=== PATIENT | female | born 1970 | race Caucasian/White ===

== ENCOUNTER 2016-06-03 13:41 | Emergency (ER) | payer OTHER ==
[~2016-06-03 13:41] MED LIST: PRILOSEC OTC20 MG PO; TRAMADOL HCL50 MG PO; TYLENOL EXTRA500 MG PO; ZYRTEC-D TABLE1 EACH PO
[2016-06-03] MEDS ORDERED: CELEBREX200 M1 PO (14:28)
[2016-06-03] MEDS ORDERED: OMEPRAZOLE40 M2 PO (14:29)
[2016-06-03] MEDS ORDERED: CELEXA40 M2 PO (14:29)
[2016-06-03] MEDS ORDERED: COLESTID1 GM PO (14:29)
[2016-06-03] MEDS ORDERED: ZOFRAN4 M2 PO (14:30)
[2016-06-03] MEDS ORDERED: PRENATAL-U CAPS1 CAP PO (14:35)
[2016-06-03] MEDS ORDERED: VITAMIN B122500 MCG PO (14:35)
[2016-06-03] MEDS ORDERED: ZYRTEC10 M7 PO (14:35)
[2016-06-03 15:36] LABS: BASO % 0.1 % (0-2); EOS % 1.2 % (0-7); EOSINOPHIL ABSOLUTE COUNT 0.1 tho/cmm (0.0-0.7); HCT-HEMATOCRIT 36.3 % (34.0-49.0); HGB-HEMOGLOBIN 11.8 gm/dl (12.0-15.5); IMMATURE GRANULOCYTES ABSOLUTE 0.02 tho/cmm (0-0.03); IMMATURE GRANULOCYTES PERCENT 0.2 % (0-0.3); LYMPH % 20.5 % (20-45); LYMPH ABSOLUTE COUNT 2.1 tho/cmm (0.8-4.5); MCH (MEAN CORPUSCULAR HGB) 27.1 pg (28.0-32.0); MCHC MEAN CORPUSCULAR HGB CONC 32.5 % (32.0-36.0); MCV (MEAN CELL VOLUME) 83.4 fl (82.0-96.0); MONO % 4.9 % (0-12); MONOCYTE ABSOLUTE COUNT 0.5 tho/cmm (0.0-1.2); NEUTROPHIL ABSOLUTE COUNT 7.5 tho/cmm (1.6-8.0); NEUTROPHIL-AUTOMATED 7.5 tho/cmm (1.6-8.0); NEUTROPHILS % 73.1 % (40-80); PLATELET COUNT 260 tho/cmm (150-450); RED BLOOD COUNT 4.35 mil/cmm (4.00-5.20); RED CELL DISTRIBUTION WIDTH 13.9 % (12.4-16.4); WHITE BLOOD COUNT 10.3 tho/cmm (4.0-10.0)
[2016-06-03 15:43] LABS: PREGNANCY-SERUM NEGATIVE (NEGATIVE)
[2016-06-03 15:45] LABS: ANION GAP 12 mmol/L (0-20); BLOOD UREA NITROGEN 12 mg/dl (6-24); CALCIUM 8.6 mg/dl (8.5-10.5); CARBON DIOXIDE-VENOUS 27 mmol/L (22-32); CHLORIDE 105 mmol/l (96-110); CREATININE 0.65 mg/dl (0.50-1.10); GLUCOSE 82 mg/dL (70-110); SODIUM 140 mmol/L (135-145); eGFR VALUE FOR BLACK >90 mL/Min
[2016-06-03] MEDS ORDERED: NORCO 5-325 TA1 EACH PO (16:19)
[2016-09-15] MEDS ORDERED: BENADRYL25 M3 PO (16:41)
[2016-09-15] MEDS ORDERED: TYLENOL EXTRA500 M1 PO (16:41)
[2016-09-15] MEDS ORDERED: ZOFRAN4 M2 PO (16:41)
[2016-09-15] MEDS ORDERED: ZYRTEC10 M7 PO (16:42)
[2016-09-15] MEDS ORDERED: IMODIUM A-D2 M3 PO (16:42)
[2016-09-15] MEDS ORDERED: NASONEX17 G1 (16:43)
[2016-09-18] MEDS ORDERED: IBUPROFEN800 M1 PO (10:44)
[2016-09-18] MEDS ORDERED: ESTRACE1 M3 PO (10:45)
[2016-09-18] MEDS ORDERED: COLACE100 M1 PO (10:45)
[2016-09-18] MEDS ORDERED: NORCO 5-325 TA1 EACH PO (10:48)
== END 2016-06-03 16:25 ==
LOC: EDMED 13:41
PROVIDERS: Emergency Medicine
DX: N83.201 Unspecified ovarian cyst, right side (principal); Z90.49 Acquired absence of other specified parts of digestive tract